=== PATIENT | male | born 1990 | race Caucasian/White ===

== ENCOUNTER 2016-10-17 03:59 | Inpatient (IN) | payer MEDICAID ==
[~2016-10-17] VITALS: Ht 170.2 cm; Wt 62.1 kg
[~2016-10-17 03:59] MED LIST: ARIP10TA14 PO; DIVA500T52 PO; ESCI10TA PO; LORA1TAB3 PO; OXYC-158 PO
[2016-10-17 04:25] LABS: BASOPHILS # (AUTO) 0.01 K/uL (0.00-0.20); BASOPHILS % (AUTO) 0.1 % (0.0-2.0); EOSINOPHILS # (AUTO) 0.01 K/uL (0.00-0.70); EOSINOPHILS % (AUTO) 0.06 % (1.0-6.0); HEMATOCRIT 45.4 % (41-53); HEMOGLOBIN 15.1 g/dL (13.5-17.5); LYMPHOCYTES # (AUTO) 1.1 K/uL (1.0-4.8); LYMPHOCYTES % (AUTO) 8.7 % (22.0-44.0); MEAN CORPUSCULAR HEMOGLOBIN 31.2 pg (26.0-34.0); MEAN CORPUSCULAR HGB CONC 33.3 G/dL (31.0-37.0); MEAN CORPUSCULAR VOLUME 94 fL (80-100); MONOCYTES # (AUTO) 0.9 K/uL (0.1-1.0); NEUTROPHILS # (AUTO) 10.5 K/uL (1.8-7.7); NEUTROPHILS % (AUTO) 84.2 % (40.0-70.0); PLATELET COUNT (AUTO) 217 K/uL (150-450); RED BLOOD CELL COUNT(AUTO) 4.84 MIL/uL (4.50-5.90); RED CELL DISTRIBUTION WIDTH 13.9 % (11.5-14.5); WHITE BLOOD COUNT (AUTO) 12.4 K/uL (4.5-11.0)
[2016-10-17 04:32] LABS: ANION GAP 9 mmol/L (8-16); CALCIUM, TOTAL 9.1 mg/dL (8.8-10.5); CARBON DIOXIDE 29 mmol/L (22-29); CHLORIDE 97 mmol/L (98-107); GLOMERULAR FILTR. RATE CALC > 60 mL/min (>60); POTASSIUM 4.3 mmol/L (3.5-5.1); SODIUM SERUM 135 mmol/L (136-145); UREA NITROGEN, BLOOD 19 mg/dL (7-18)
[2016-10-17 04:40] LABS: ALANINE AMINOTRANSFERASE 29 U/L (12-78); ALBUMIN 4.3 g/dL (3.4-5.0); ASPARTATE AMINOTRANSFERASE 42 U/L (15-37); BILIRUBIN,TOTAL 0.9 mg/dL (0.1-1.0); TOTAL PROTEIN, SERUM 7.5 g/dL (6.4-8.2)
[2016-10-17 04:51] LABS: VALPROIC ACID < 3 mcg/mL (50-100)
[2016-10-17] MEDS ORDERED: LORazepam 2 MG TABLET PO ONE (05:00)
[2016-10-17] MEDS ORDERED: HALOPERIDOL 5 MG TABLET PO PRN (05:00)
[2016-10-17] MEDS: ZOLPIDEM TARTRATE 10 MG TABLET PO PRN ×2 (06:06→20:09)
[2016-10-17 16:33] VITALS: BP 130/92
[2016-10-17 16:35] VITALS: BP 130/92
[2016-10-17] MEDS: LORazepam 2 MG TABLET PO PRN (20:09)
[2016-10-17] MEDS: DIVALPROEX SODIUM 500 MG DR TABLET PO SCH (20:09)
[2016-10-18] MEDS: LORazepam 2 MG TABLET PO PRN ×3 (00:22→20:19)
[2016-10-18 06:16] VITALS: BP 135/85
[2016-10-18 08:57] VITALS: BP 123/91
[2016-10-18] MEDS: ESCITALOPRAM OXALATE 20 MG TABLET PO SCH (09:02)
[2016-10-18] MEDS: ARIPiprazole 10 MG TABLET PO SCH (09:02)
[2016-10-18 14:59] VITALS: BP 125/87
[2016-10-18 16:32] VITALS: BP 130/82
[2016-10-18] MEDS: DIVALPROEX SODIUM 500 MG DR TABLET PO SCH (20:19)
[2016-10-19 00:25] VITALS: BP 114/72
[2016-10-19 08:51] VITALS: BP 141/82
[2016-10-19] MEDS: ESCITALOPRAM OXALATE 20 MG TABLET PO SCH (09:32)
[2016-10-19] MEDS: ARIPiprazole 10 MG TABLET PO SCH (09:32)
[2016-10-19] MEDS: LORazepam 2 MG TABLET PO PRN (09:48)
[2016-10-19] MEDS ORDERED: DIVA500T35 PO (11:10)
== END 2016-10-19 13:15 | disposition home or self-care (01) | DRG 885 ==
LOC: EMS 04:00 → B2S 13:42 → EMS 14:01
DX: F31.4 Bipolar disorder, current episode depressed, severe, without psychotic features (principal); R45.851 Suicidal ideations; F12.90 Cannabis use, unspecified, uncomplicated; F17.210 Nicotine dependence, cigarettes, uncomplicated; G89.29 Other chronic pain; M54.9 Dorsalgia, unspecified; F41.9 Anxiety disorder, unspecified; Z65.3 Problems related to other legal circumstances; Z91.5 Personal history of self-harm; Z79.899 Other long term (current) drug therapy
CPT/HCPCS: 87081; 99285; G0480

== ENCOUNTER 2017-01-18 15:30 | Inpatient (IN) | payer MEDICAID ==
[~2017-01-18] VITALS: Ht 172.7 cm; Wt 63.5 kg
[~2017-01-18 15:30] MED LIST changes: +DIVA500T35 PO; -DIVA500T52 PO; -LORA1TAB3 PO; -OXYC-158 PO
[2017-01-18 15:57] VITALS: BP 127/67
[2017-01-18] MEDS ORDERED: HALOPERIDOL 5 MG TABLET PO PRN (16:00)
[2017-01-18] MEDS ORDERED: LORazepam 2 MG TABLET PO PRN (16:00)
[2017-01-18] MEDS ORDERED: PARO20TA24 PO (16:28)
[2017-01-18] MEDS ORDERED: DIAZ5 PO (16:28)
[2017-01-18 17:59] VITALS: BP 125/71
[2017-01-19 00:15] VITALS: BP 108/65
[2017-01-19 08:56] LABS: BASOPHILS # (AUTO) 0.04 K/uL (0.00-0.20); BASOPHILS % (AUTO) 0.8 % (0.0-2.0); EOSINOPHILS # (AUTO) 0.05 K/uL (0.00-0.70); EOSINOPHILS % (AUTO) 1.15 % (1.0-6.0); HEMATOCRIT 41.1 % (41-53); HEMOGLOBIN 13.9 g/dL (13.5-17.5); LYMPHOCYTES # (AUTO) 1.5 K/uL (1.0-4.8); LYMPHOCYTES % (AUTO) 33.4 % (22.0-44.0); MEAN CORPUSCULAR HGB CONC 33.7 G/dL (31.0-37.0); MEAN CORPUSCULAR VOLUME 92 fL (80-100); MONOCYTES # (AUTO) 0.4 K/uL (0.1-1.0); MONOCYTES % (AUTO) 8.5 % (2.0-9.0); NEUTROPHILS # (AUTO) 2.5 K/uL (1.8-7.7); NEUTROPHILS % (AUTO) 56.1 % (40.0-70.0); PLATELET COUNT (AUTO) 180 K/uL (150-450); RED BLOOD CELL COUNT(AUTO) 4.49 MIL/uL (4.50-5.90); RED CELL DISTRIBUTION WIDTH 12.8 % (11.5-14.5); WHITE BLOOD COUNT (AUTO) 4.4 K/uL (4.5-11.0)
[2017-01-19 09:17] LABS: ALANINE AMINOTRANSFERASE 18 U/L (12-78); ALBUMIN 3.6 g/dL (3.4-5.0); ANION GAP 5 mmol/L (8-16); ASPARTATE AMINOTRANSFERASE 13 U/L (15-37); BILIRUBIN,TOTAL 0.5 mg/dL (0.1-1.0); CALCIUM, TOTAL 8.4 mg/dL (8.8-10.5); CARBON DIOXIDE 32 mmol/L (22-29); CHLORIDE 105 mmol/L (98-107); CREATININE 0.87 mg/dL (0.60-1.30); GLOMERULAR FILTR. RATE CALC > 60 mL/min (>60); POTASSIUM 3.7 mmol/L (3.5-5.1); SODIUM SERUM 142 mmol/L (136-145); TOTAL PROTEIN, SERUM 6.4 g/dL (6.4-8.2); UREA NITROGEN, BLOOD 20 mg/dL (7-18)
[2017-01-19 09:18] VITALS: BP 108/62
[2017-01-19 09:30] LABS: APPEARANCE,URINE TURBID (CLEAR); GLUCOSE, URINE (UA) NEGATIVE (NEGATIVE); KETONES,URINE NEGATIVE (NEGATIVE); LEUKOCYTE ESTERASE ,URINE NEGATIVE (NEGATIVE); OCCULT BLOOD,URINE NEGATIVE (NEGATIVE); PH,URINE 5.5 (5.0-8.0); PROTEIN,URINE NEGATIVE (NEGATIVE)
[2017-01-19 09:34] LABS: ADD UA MICROSCOPIC NO
[2017-01-19] MEDS ORDERED: HydrOXYzine PAMOATE 25 MG CAPSULE PO PRN (14:30)
[2017-01-19 16:00] VITALS: BP 121/77
[2017-01-19] MEDS: LORazepam 1 MG TABLET PO SCH (16:11)
[2017-01-19] MEDS: ZOLPIDEM TARTRATE 10 MG TABLET PO PRN (21:11)
[2017-01-20 06:00] VITALS: BP 110/66
[2017-01-20] MEDS: LORazepam 1 MG TABLET PO SCH (09:23)
[2017-01-20] MEDS: PARoxetine HCL 20 MG TABLET PO SCH (09:23)
[2017-01-20 13:34] VITALS: BP_SYST 100; BP_SYST 126; BP_DIAS 68; BP_DIAS 70
[2017-01-20 16:00] VITALS: BP 147/79
[2017-01-20] MEDS: ZOLPIDEM TARTRATE 10 MG TABLET PO PRN (20:25)
[2017-01-21 07:00] VITALS: BP 125/62
[2017-01-21] MEDS: PARoxetine HCL 20 MG TABLET PO SCH (08:04)
[2017-01-21 08:13] VITALS: BP 110/62
[2017-01-21] MEDS ORDERED: PARO40TA PO (10:32)
== END 2017-01-21 12:30 | disposition home or self-care (01) | DRG 751 ==
LOC: B2S 16:01 → EDSTATUS 16:03
PROVIDERS: ADMIT Psychiatry & Neurology Psychiatry; ATTEND Psychiatry & Neurology Psychiatry
DX: F33.2 Major depressive disorder, recurrent severe without psychotic features (principal); F41.9 Anxiety disorder, unspecified; F12.90 Cannabis use, unspecified, uncomplicated; F13.90 Sedative, hypnotic, or anxiolytic use, unspecified, uncomplicated
CPT/HCPCS: 87081

== ENCOUNTER 2017-01-31 17:16 | Inpatient (IN) | payer MEDICAID ==
[~2017-01-31] VITALS: Ht 172.7 cm; Wt 60.9 kg
[~2017-01-31 17:16] MED LIST changes: -ARIP10TA14 PO; -DIVA500T35 PO; -ESCI10TA PO; +PARO40TA PO
[2017-01-31] MEDS ORDERED: LORazepam 2 MG TABLET PO ONE (19:00)
[2017-01-31] MEDS ORDERED: HydrOXYzine PAMOATE 50 MG CAPSULE PO ONE (19:30)
[2017-01-31 19:50] LABS: BASOPHILS % (AUTO) 0.7 % (0.0-2.0); EOSINOPHILS % (AUTO) 0.7 % (1.0-6.0); HEMATOCRIT 47.2 % (41-53); HEMOGLOBIN 15.4 g/dL (13.5-17.5); LYMPHOCYTES % (AUTO) 39.7 % (22.0-44.0); MEAN CORPUSCULAR HEMOGLOBIN 30.4 pg (26.0-34.0); MEAN CORPUSCULAR HGB CONC 32.6 G/dL (31.0-37.0); MEAN CORPUSCULAR VOLUME 93 fL (80-100); MONOCYTES # (AUTO) 0.5 K/uL (0.1-1.0); MONOCYTES % (AUTO) 7.2 % (2.0-9.0); NEUTROPHILS # (AUTO) 3.9 K/uL (1.8-7.7); NEUTROPHILS % (AUTO) 51.7 % (40.0-70.0); PLATELET COUNT (AUTO) 215 K/uL (150-450); RED BLOOD CELL COUNT(AUTO) 5.06 MIL/uL (4.50-5.90); RED CELL DISTRIBUTION WIDTH 13.7 % (11.5-14.5); WHITE BLOOD COUNT (AUTO) 7.5 K/uL (4.5-11.0)
[2017-01-31 20:06] LABS: ANION GAP 1 mmol/L (8-16); CALCIUM, TOTAL 9.1 mg/dL (8.8-10.5); CARBON DIOXIDE 31 mmol/L (22-29); CHLORIDE 100 mmol/L (98-107); CREATININE 1.02 mg/dL (0.60-1.30); GLOMERULAR FILTR. RATE CALC > 60 mL/min (>60); POTASSIUM 3.9 mmol/L (3.5-5.1); SODIUM SERUM 132 mmol/L (136-145); UREA NITROGEN, BLOOD 17 mg/dL (7-18)
[2017-01-31 20:07] LABS: ALANINE AMINOTRANSFERASE 20 U/L (12-78); ALBUMIN 4.5 g/dL (3.4-5.0); ASPARTATE AMINOTRANSFERASE 11 U/L (15-37); BILIRUBIN,TOTAL 0.4 mg/dL (0.1-1.0); TOTAL PROTEIN, SERUM 7.4 g/dL (6.4-8.2)
[2017-01-31 21:14] VITALS: BP 119/80
[2017-01-31] MEDS: ZOLPIDEM TARTRATE 10 MG TABLET PO PRN (21:37)
[2017-02-01 06:37] VITALS: BP 109/69
[2017-02-01 08:38] VITALS: BP 98/55
[2017-02-01] MEDS: LORazepam 2 MG TABLET PO PRN ×2 (12:05→16:04)
[2017-02-01 16:04] VITALS: BP 112/66
[2017-02-01] MEDS: ZOLPIDEM TARTRATE 10 MG TABLET PO PRN (21:01)
[2017-02-02 06:36] VITALS: BP 106/63
[2017-02-02 08:02] VITALS: BP 122/63
[2017-02-02] MEDS: HydrOXYzine PAMOATE 25 MG CAPSULE PO SCH ×3 (08:08→17:13)
[2017-02-02] MEDS: PARoxetine HCL 20 MG TABLET PO SCH (08:08)
[2017-02-02] MEDS: HALOPERIDOL 5 MG TABLET PO PRN (08:21)
[2017-02-02 16:07] VITALS: BP 127/66
[2017-02-02] MEDS: ZOLPIDEM TARTRATE 10 MG TABLET PO PRN (21:25)
[2017-02-03 05:36] VITALS: BP 109/68
[2017-02-03 08:03] VITALS: BP 116/60
[2017-02-03] MEDS: HydrOXYzine PAMOATE 25 MG CAPSULE PO SCH ×3 (09:02→16:23)
[2017-02-03] MEDS: PARoxetine HCL 20 MG TABLET PO SCH (09:02)
[2017-02-03 16:00] VITALS: BP 119/72
[2017-02-03] MEDS: ZOLPIDEM TARTRATE 10 MG TABLET PO PRN (20:27)
[2017-02-04 06:01] VITALS: BP 108/73
[2017-02-04 08:28] VITALS: BP 118/67
[2017-02-04] MEDS: HydrOXYzine PAMOATE 25 MG CAPSULE PO SCH ×2 (08:41→11:37)
[2017-02-04] MEDS: HALOPERIDOL 5 MG TABLET PO PRN (08:42)
[2017-02-04] MEDS: PARoxetine HCL 20 MG TABLET PO SCH (08:42)
[2017-02-04] MEDS ORDERED: HYDR-4031 PO (11:22)
[2017-02-04] MEDS ORDERED: PARO20TA24 PO (11:22)
== END 2017-02-04 13:00 | disposition home or self-care (01) | DRG 751 ==
LOC: EMS 17:23 → B3A 20:00
PROVIDERS: ADMIT Psychiatry & Neurology Psychiatry; ATTEND Psychiatry & Neurology Psychiatry
DX: F33.2 Major depressive disorder, recurrent severe without psychotic features (principal); F41.9 Anxiety disorder, unspecified; F12.90 Cannabis use, unspecified, uncomplicated
CPT/HCPCS: 87081; 99285; G0480

== ENCOUNTER 2017-02-08 11:17 | Inpatient (IN) | payer MEDICAID ==
[~2017-02-08] VITALS: Ht 165.1 cm; Wt 60.0 kg
[~2017-02-08 11:17] MED LIST changes: +HYDR-4031 PO; +PARO20TA24 PO; -PARO40TA PO
[2017-02-08 13:53] VITALS: BP 153/78
[2017-02-08] MEDS ORDERED: ACETAMINOPHEN 325 MG TABLET PO PRN (14:30)
[2017-02-08] MEDS ORDERED: MAG HYDROX/AL HYDROX/SIMETH ES 30 ML SUSPENSION UDCUP PO PRN (14:30)
[2017-02-08] MEDS ORDERED: MAGNESIUM HYDROXIDE SUSPENSION 30 ML UDCUP PO PRN (14:30)
[2017-02-08] MEDS ORDERED: LOPERAMIDE HCL 2 MG CAPSULE PO PRN (14:30)
[2017-02-08] MEDS ORDERED: OLANZapine 5 MG RAPDIS TABLET PO PRN (14:30)
[2017-02-08] MEDS: LORazepam 2 MG TABLET PO PRN ×2 (15:57→20:26)
[2017-02-08 16:15] VITALS: BP 120/76
[2017-02-08] MEDS: PROMETHAZINE HCL 25 MG TABLET PO PRN (17:32)
[2017-02-08] MEDS: ZOLPIDEM TARTRATE 10 MG TABLET PO PRN (20:26)
[2017-02-09 08:32] VITALS: BP 116/72
[2017-02-09 08:35] LABS: BASOPHILS % (AUTO) 0.2 % (0.0-2.0); EOSINOPHILS % (AUTO) 2.1 % (1.0-6.0); HEMATOCRIT 48.8 % (41-53); HEMOGLOBIN 16.3 g/dL (13.5-17.5); LYMPHOCYTES # (AUTO) 2.4 K/uL (1.0-4.8); MEAN CORPUSCULAR HEMOGLOBIN 31.5 pg (26.0-34.0); MEAN CORPUSCULAR HGB CONC 33.4 G/dL (31.0-37.0); MEAN CORPUSCULAR VOLUME 94 fL (80-100); MONOCYTES # (AUTO) 0.7 K/uL (0.1-1.0); MONOCYTES % (AUTO) 9.9 % (2.0-9.0); NEUTROPHILS # (AUTO) 3.4 K/uL (1.8-7.7); NEUTROPHILS % (AUTO) 50.8 % (40.0-70.0); PLATELET COUNT (AUTO) 210 K/uL (150-450); RED BLOOD CELL COUNT(AUTO) 5.17 MIL/uL (4.50-5.90); RED CELL DISTRIBUTION WIDTH 13.6 % (11.5-14.5); WHITE BLOOD COUNT (AUTO) 6.6 K/uL (4.5-11.0)
[2017-02-09] MEDS: PARoxetine HCL 20 MG TABLET PO SCH (08:56)
[2017-02-09] MEDS: LORazepam 2 MG TABLET PO PRN ×3 (08:56→18:01)
[2017-02-09] MEDS ORDERED: OLANZapine 7.5 MG TABLET PO SCH (09:00)
[2017-02-09 09:46] LABS: ALANINE AMINOTRANSFERASE 18 U/L (12-78); ALBUMIN 4.4 g/dL (3.4-5.0); ANION GAP 8 mmol/L (8-16); ASPARTATE AMINOTRANSFERASE 11 U/L (15-37); BILIRUBIN,TOTAL 0.5 mg/dL (0.1-1.0); CALCIUM, TOTAL 9.2 mg/dL (8.8-10.5); CARBON DIOXIDE 30 mmol/L (22-29); CHLORIDE 101 mmol/L (98-107); CHOL/HDL RATIO 3.1 (4.2-7.3); CREATININE 0.87 mg/dL (0.60-1.30); GLOMERULAR FILTR. RATE CALC > 60 mL/min (>60); POTASSIUM 3.3 mmol/L (3.5-5.1); SODIUM SERUM 139 mmol/L (136-145); THYROID STIMULATING HORMONE 2.04 uIU/mL (0.36-3.74); TOTAL PROTEIN, SERUM 7.6 g/dL (6.4-8.2); UREA NITROGEN, BLOOD 16 mg/dL (7-18)
[2017-02-09] MEDS ORDERED: POTASSIUM CHLORIDE 20 MEQ ER TABLET PO ONE (11:00)
[2017-02-09] MEDS: PROMETHAZINE HCL 25 MG TABLET PO PRN ×2 (14:28→21:16)
[2017-02-09 16:05] VITALS: BP 110/65
[2017-02-09] MEDS: ZOLPIDEM TARTRATE 10 MG TABLET PO PRN (20:32)
[2017-02-09] MEDS: OLANZapine 7.5 MG TABLET PO SCH (20:46)
[2017-02-10] MEDS: LORazepam 2 MG TABLET PO PRN ×4 (00:45→20:18)
[2017-02-10 00:46] VITALS: BP 123/92
[2017-02-10 08:10] LABS: ANION GAP 5 mmol/L (8-16); CALCIUM, TOTAL 8.9 mg/dL (8.8-10.5); CARBON DIOXIDE 32 mmol/L (22-29); CHLORIDE 103 mmol/L (98-107); GLOMERULAR FILTR. RATE CALC > 60 mL/min (>60); POTASSIUM 4.1 mmol/L (3.5-5.1); SODIUM SERUM 140 mmol/L (136-145); UREA NITROGEN, BLOOD 15 mg/dL (7-18)
[2017-02-10] MEDS: PARoxetine HCL 20 MG TABLET PO SCH (08:20)
[2017-02-10 09:18] VITALS: BP 110/64
[2017-02-10 16:16] VITALS: BP 120/67
[2017-02-10] MEDS: OLANZapine 7.5 MG TABLET PO SCH (20:18)
[2017-02-10] MEDS: PROMETHAZINE HCL 25 MG TABLET PO PRN (20:22)
[2017-02-10] MEDS: ZOLPIDEM TARTRATE 10 MG TABLET PO PRN (22:25)
[2017-02-11 08:48] VITALS: BP 121/72
[2017-02-11] MEDS: PARoxetine HCL 20 MG TABLET PO SCH (10:06)
[2017-02-11] MEDS: LORazepam 2 MG TABLET PO PRN (10:13)
[2017-02-11] MEDS ORDERED: OLAN7.5T2 PO (11:12)
[2017-02-11] MEDS ORDERED: NALT50 PO (12:19)
[2017-02-11] MEDS ORDERED: HydrOXYzine PAMOATE 50 MG CAPSULE PO PRN (12:30)
[2017-02-11] MEDS ORDERED: LOPERAMIDE HCL 2 MG CAPSULE PO PRN (12:30)
[2017-02-11] MEDS ORDERED: MAG HYDROX/AL HYDROX/SIMETH ES 30 ML SUSPENSION UDCUP PO PRN (12:30)
[2017-02-11] MEDS ORDERED: GuaiFENesin/D-METHORPHAN [SUGAR-FREE] 200-20MG/10 ML SYRUP UDCUP PO PRN (12:30)
[2017-02-11] MEDS ORDERED: ZOLPIDEM TARTRATE 10 MG TABLET PO PRN (12:30)
[2017-02-11] MEDS ORDERED: PROMETHAZINE HCL 25 MG TABLET PO PRN (12:30)
[2017-02-11] MEDS ORDERED: ACETAMINOPHEN 325 MG TABLET PO PRN (12:30)
[2017-02-11] MEDS ORDERED: MAGNESIUM HYDROXIDE SUSPENSION 30 ML UDCUP PO PRN (12:30)
[2017-02-11] MEDS ORDERED: THIAMINE HCL 100 MG TABLET PO SCH (17:00)
[2017-02-12] MEDS ORDERED: MULTIVITAMINS WITH MINERALS, THERAPEUTIC TABLET PO SCH (09:00)
[2017-02-12] MEDS ORDERED: NALTREXONE HCL 50 MG TABLET PO SCH (09:00)
[2017-02-12] MEDS ORDERED: FOLIC ACID 1 MG TABLET PO SCH (09:00)
== END 2017-02-11 12:05 | disposition home or self-care (01) | DRG 750 ==
LOC: B3A 14:29 → EDSTATUS 14:36 → B2S 02-09 16:33
PROVIDERS: ADMIT Psychiatry & Neurology Psychiatry
DX: F25.1 Schizoaffective disorder, depressive type (principal); R45.851 Suicidal ideations; Z91.19 Patient's noncompliance with other medical treatment and regimen; F12.90 Cannabis use, unspecified, uncomplicated
CPT/HCPCS: 84439; 84443; 87081

== ENCOUNTER 2021-03-01 01:26 | Inpatient (IN) | payer MEDICAID ==
[~2021-03-01] VITALS: Ht 170.2 cm; Wt 60.8 kg
[~2021-03-01 01:26] MED LIST changes: -HYDR-4031 PO; +NALT50TA6 PO; +OLAN7.5T22 PO; +PARO-38 PO; -PARO20TA24 PO
[2021-03-01 02:16] LABS: EOSINOPHILS % (AUTO) 0.4 % (1.0-6.0); HEMATOCRIT 50.3 % (41-53); HEMOGLOBIN 16.8 g/dL (13.5-17.5); LYMPHOCYTES # (AUTO) 1.8 K/uL (1.0-4.8); LYMPHOCYTES % (AUTO) 23.7 % (22.0-44.0); MEAN CORPUSCULAR HEMOGLOBIN 32.3 pg (26.0-34.0); MEAN CORPUSCULAR HGB CONC 33.3 G/dL (31.0-37.0); MEAN CORPUSCULAR VOLUME 97 fL (80-100); MONOCYTES # (AUTO) 0.5 K/uL (0.1-1.0); MONOCYTES % (AUTO) 6.1 % (2.0-9.0); NEUTROPHILS # (AUTO) 5.4 K/uL (1.8-7.7); NEUTROPHILS % (AUTO) 68.8 % (40.0-70.0); PLATELET COUNT (AUTO) 255 K/uL (150-450); RED BLOOD CELL COUNT(AUTO) 5.18 MIL/uL (4.50-5.90); RED CELL DISTRIBUTION WIDTH 13.4 % (11.5-14.5)
[2021-03-01 02:23] LABS: ANION GAP 10 mmol/L (8-16); CALCIUM, TOTAL 8.4 mg/dL (8.8-10.5); CARBON DIOXIDE 27 mmol/L (22-29); CHLORIDE 106 mmol/L (98-107); CREATININE 0.78 mg/dL (0.60-1.30); GLOMERULAR FILTR. RATE CALC > 60 mL/min (>60); GLUCOSE,RANDOM 96 mg/dL (70-110); POTASSIUM 3.2 mmol/L (3.5-5.1); SODIUM SERUM 143 mmol/L (136-145); UREA NITROGEN, BLOOD 11 mg/dL (7-18)
[2021-03-01 02:29] LABS: ALANINE AMINOTRANSFERASE 21 U/L (12-78); ALBUMIN 4.1 g/dL (3.4-5.0); ALKALINE PHOSPHATASE 80 U/L (46-116); ASPARTATE AMINOTRANSFERASE 18 U/L (15-37); BILIRUBIN,TOTAL 0.2 mg/dL (0.1-1.0); TOTAL PROTEIN, SERUM 7.3 g/dL (6.4-8.2)
[2021-03-01] MEDS ORDERED: LORazepam 2 MG TABLET PO PRN (02:30)
[2021-03-01 02:38] LABS: COVID AG,FIA SOURCE NASOPHARYNGEAL
[2021-03-01 03:16] LABS: SALICYLATE 2.8 mg/dL (2.8-20.0)
[2021-03-01 03:21] LABS: ACETAMINOPHEN < 2 mcg/mL (10-30)
[2021-03-01] MEDS ORDERED: POTASSIUM CHLORIDE 20 MEQ ER TABLET PO ONE (04:00)
[2021-03-01] MEDS ORDERED: ALBUTEROL SULFATE HFA 90 MCG/PUFF 8 GM INHALER IH PRN (07:45)
[2021-03-01] MEDS ORDERED: MAGNESIUM HYDROXIDE SUSPENSION 30 ML UDCUP PO PRN (07:45)
[2021-03-01] MEDS ORDERED: IBUPROFEN 400 MG TABLET PO PRN (07:45)
[2021-03-01] MEDS ORDERED: LOPERAMIDE HCL 2 MG CAPSULE PO PRN (07:45)
[2021-03-01] MEDS ORDERED: MAG HYDROX/AL HYDROX/SIMETH ES 30 ML SUSPENSION UDCUP PO PRN (07:45)
[2021-03-01] MEDS ORDERED: DOCUSATE SODIUM 100 MG CAPSULE PO PRN (07:45)
[2021-03-01] MEDS ORDERED: ONDANSETRON HCL 4 MG TABLET PO PRN (07:45)
[2021-03-01] MEDS ORDERED: CloNIDine HCL 0.1 MG TABLET PO PRN (07:45)
[2021-03-01] MEDS ORDERED: NICOTINE 14 MG/24 HOUR PATCH TD PRN (07:45)
[2021-03-01] MEDS ORDERED: GuaiFENesin/D-METHORPHAN [SUGAR-FREE] 200-20MG/10 ML SYRUP UDCUP PO PRN (07:45)
[2021-03-01] MEDS ORDERED: PETROLATUM,WHITE 28 GM JELLY TP PRN (07:45)
[2021-03-01] MEDS ORDERED: ACETAMINOPHEN 325 MG TABLET PO PRN (07:45)
[2021-03-01 08:35] VITALS: BP 124/87
[2021-03-01] MEDS: LORazepam 2 MG TABLET PO PRN ×3 (08:53→20:59)
[2021-03-01 09:35] LABS: APPEARANCE,URINE CLEAR (CLEAR); BILIRUBIN,URINE NEGATIVE (NEGATIVE); GLUCOSE, URINE (UA) NEGATIVE (NEGATIVE); KETONES,URINE TRACE mg/dL (NEGATIVE); LEUKOCYTE ESTERASE ,URINE NEGATIVE (NEGATIVE); NITRATE,URINE NEGATIVE (NEGATIVE); OCCULT BLOOD,URINE NEGATIVE (NEGATIVE); PH,URINE 5.5 (5.0-8.0); PROTEIN,URINE NEGATIVE (NEGATIVE); UROBILINOGEN,URINE 0.2 mg/dL (<=1.0)
[2021-03-01 09:50] LABS: AMPHET/METH SCREEN,URINE POSITIVE (NEGATIVE); BARBITURATE SCREEN, URINE NEGATIVE (NEGATIVE); BENZODIAZEPINES SCREEN,URINE NEGATIVE (NEGATIVE); CANNABINOID SCREEN,URINE POSITIVE (NEGATIVE); COCAINE SCREEN,URINE NEGATIVE (NEGATIVE); METHADONE SCREEN, URINE NEGATIVE (NEGATIVE); OPIATE SCREEN,URINE POSITIVE (NEGATIVE); PHENCYCLIDINE SCREEN,URINE NEGATIVE (NEGATIVE)
[2021-03-01 09:55] VITALS: BP 120/72
[2021-03-01] MEDS ORDERED: CYANOCOBALAMIN 1,000 MCG/ML VIAL IM ONE (10:00)
[2021-03-01] MEDS: MULTIVITAMINS WITH MINERALS, THERAPEUTIC TABLET PO SCH (10:05)
[2021-03-01] MEDS: PARoxetine HCL 20 MG TABLET PO SCH (10:06)
[2021-03-01] MEDS: FOLIC ACID 1 MG TABLET PO SCH (10:06)
[2021-03-01] MEDS: THIAMINE 100 MG TABLET PO SCH ×2 (10:06→16:23)
[2021-03-01 10:55] VITALS: BP 125/78
[2021-03-01 11:55] VITALS: BP 123/76
[2021-03-01 16:00] VITALS: BP 118/76
[2021-03-01 17:51] VITALS: BP 121/76
[2021-03-01] MEDS ORDERED: HALOPERIDOL LACTATE 5 MG/ML VIAL IM ONE (19:15)
[2021-03-01] MEDS ORDERED: DiphenhydrAMINE HCL 50 MG/ML VIAL IM ONE (19:15)
[2021-03-01] MEDS ORDERED: LORazepam 2 MG/ML VIAL IM ONE (19:15)
[2021-03-01] MEDS ORDERED: OLANZapine 7.5 MG TABLET PO SCH (21:00)
[2021-03-02 08:39] LABS: CHOL/HDL RATIO 3.4 (4.2-7.3)
[2021-03-02 08:53] VITALS: BP 124/83
[2021-03-02 09:51] VITALS: BP 120/78
[2021-03-02] MEDS: FOLIC ACID 1 MG TABLET PO SCH (10:02)
[2021-03-02] MEDS: THIAMINE 100 MG TABLET PO SCH ×2 (10:02→16:46)
[2021-03-02] MEDS: MULTIVITAMINS WITH MINERALS, THERAPEUTIC TABLET PO SCH (10:02)
[2021-03-02] MEDS: PARoxetine HCL 20 MG TABLET PO SCH (10:02)
[2021-03-02] MEDS: LORazepam 2 MG TABLET PO SCH ×4 (10:03→21:00)
[2021-03-02] MEDS: QUEtiapine FUMARATE 100 MG TABLET PO PRN (12:50)
[2021-03-02] MEDS: LORazepam 2 MG TABLET PO PRN (12:51)
[2021-03-02 18:49] VITALS: BP 116/70
[2021-03-02 20:50] VITALS: BP 108/74
[2021-03-02] MEDS: OLANZapine 10 MG TABLET PO SCH (21:00)
[2021-03-03 08:15] VITALS: BP 123/61
[2021-03-03] MEDS: PARoxetine HCL 20 MG TABLET PO SCH (08:40)
[2021-03-03] MEDS: MULTIVITAMINS WITH MINERALS, THERAPEUTIC TABLET PO SCH (08:40)
[2021-03-03] MEDS: THIAMINE 100 MG TABLET PO SCH ×2 (08:40→16:06)
[2021-03-03] MEDS: LORazepam 2 MG TABLET PO SCH ×5 (08:40→20:30)
[2021-03-03] MEDS: FOLIC ACID 1 MG TABLET PO SCH (08:40)
[2021-03-03 10:20] VITALS: BP 110/67
[2021-03-03] MEDS: QUEtiapine FUMARATE 100 MG TABLET PO PRN ×2 (12:25→12:29)
[2021-03-03] MEDS: LORazepam 2 MG TABLET PO PRN (12:25)
[2021-03-03 16:01] VITALS: BP 118/74
[2021-03-03] MEDS: OLANZapine 10 MG TABLET PO SCH (20:32)
[2021-03-04] MEDS ORDERED: LORazepam 1 MG TABLET PO PRN (07:00)
[2021-03-04 08:27] VITALS: BP 111/79
[2021-03-04] MEDS: PARoxetine HCL 20 MG TABLET PO SCH (09:37)
[2021-03-04] MEDS: FOLIC ACID 1 MG TABLET PO SCH (09:37)
[2021-03-04] MEDS: LORazepam 1 MG TABLET PO SCH ×4 (09:37→20:21)
[2021-03-04] MEDS: THIAMINE 100 MG TABLET PO SCH ×2 (09:37→17:59)
[2021-03-04] MEDS: MULTIVITAMINS WITH MINERALS, THERAPEUTIC TABLET PO SCH (09:38)
[2021-03-04 12:05] VITALS: BP 118/77
[2021-03-04 16:00] VITALS: BP 116/68
[2021-03-04] MEDS: OLANZapine 10 MG TABLET PO SCH (20:21)
[2021-03-05 08:25] VITALS: BP 119/73
[2021-03-05] MEDS: FOLIC ACID 1 MG TABLET PO SCH (08:31)
[2021-03-05] MEDS: PARoxetine HCL 20 MG TABLET PO SCH (08:31)
[2021-03-05] MEDS: MULTIVITAMINS WITH MINERALS, THERAPEUTIC TABLET PO SCH (08:31)
[2021-03-05] MEDS: LORazepam 1 MG TABLET PO PRN ×3 (08:31→19:08)
[2021-03-05] MEDS: THIAMINE 100 MG TABLET PO SCH ×2 (08:31→17:20)
[2021-03-05 10:02] VITALS: BP 119/73
[2021-03-05 17:33] VITALS: BP 124/68
[2021-03-05] MEDS: OLANZapine 10 MG TABLET PO SCH (20:23)
[2021-03-06] MEDS: QUEtiapine FUMARATE 100 MG TABLET PO PRN (08:07)
[2021-03-06] MEDS: MULTIVITAMINS WITH MINERALS, THERAPEUTIC TABLET PO SCH (08:07)
[2021-03-06] MEDS: THIAMINE 100 MG TABLET PO SCH ×2 (08:07→16:06)
[2021-03-06] MEDS: FOLIC ACID 1 MG TABLET PO SCH (08:07)
[2021-03-06] MEDS: PARoxetine HCL 20 MG TABLET PO SCH (08:07)
[2021-03-06 08:15] VITALS: BP 119/86
[2021-03-06 12:30] VITALS: BP 113/71
[2021-03-06] MEDS: HydrOXYzine PAMOATE 50 MG CAPSULE PO PRN (12:30)
[2021-03-06] MEDS: BusPIRone HCL 5 MG TABLET PO SCH ×3 (12:30→20:03)
[2021-03-06 16:10] VITALS: BP 116/66
[2021-03-06] MEDS: OLANZapine 10 MG TABLET PO SCH (20:03)
[2021-03-06] MEDS: ZOLPIDEM TARTRATE 10 MG TABLET PO PRN (20:48)
[2021-03-07 08:43] VITALS: BP 116/65
[2021-03-07 09:51] VITALS: BP 116/65
[2021-03-07] MEDS: PARoxetine HCL 20 MG TABLET PO SCH (10:15)
[2021-03-07] MEDS: FOLIC ACID 1 MG TABLET PO SCH (10:15)
[2021-03-07] MEDS: MULTIVITAMINS WITH MINERALS, THERAPEUTIC TABLET PO SCH (10:15)
[2021-03-07] MEDS: THIAMINE 100 MG TABLET PO SCH ×2 (10:15→16:05)
[2021-03-07] MEDS: BusPIRone HCL 5 MG TABLET PO SCH ×3 (10:16→20:13)
[2021-03-07 18:06] VITALS: BP 115/61
[2021-03-07] MEDS: OLANZapine 10 MG TABLET PO SCH (20:14)
[2021-03-07] MEDS: ZOLPIDEM TARTRATE 10 MG TABLET PO PRN (20:15)
[2021-03-07] MEDS: HydrOXYzine PAMOATE 50 MG CAPSULE PO PRN (21:12)
[2021-03-08 08:10] VITALS: BP 129/80
[2021-03-08] MEDS: BusPIRone HCL 5 MG TABLET PO SCH ×2 (08:46→16:54)
[2021-03-08] MEDS: PARoxetine HCL 20 MG TABLET PO SCH (08:46)
[2021-03-08] MEDS: THIAMINE 100 MG TABLET PO SCH ×2 (08:46→16:54)
[2021-03-08] MEDS: FOLIC ACID 1 MG TABLET PO SCH (08:46)
[2021-03-08] MEDS: MULTIVITAMINS WITH MINERALS, THERAPEUTIC TABLET PO SCH (08:47)
[2021-03-08] MEDS ORDERED: OLAN10 PO (09:22)
[2021-03-08] MEDS ORDERED: PARO-37 PO (09:22)
[2021-03-08 09:56] VITALS: BP 129/80
[2021-03-08 16:00] VITALS: BP 117/69
[2021-03-08] MEDS: HydrOXYzine PAMOATE 50 MG CAPSULE PO PRN (16:52)
== END 2021-03-08 19:04 | disposition home or self-care (01) | DRG 753 ==
LOC: EMS 01:27 → 3EC 03:00
DX: F31.4 Bipolar disorder, current episode depressed, severe, without psychotic features (principal); R56.9 Unspecified convulsions; R45.851 Suicidal ideations; E87.6 Hypokalemia; F10.20 Alcohol dependence, uncomplicated; F11.10 Opioid abuse, uncomplicated; F12.10 Cannabis abuse, uncomplicated; F15.10 Other stimulant abuse, uncomplicated; M54.9 Dorsalgia, unspecified; G89.29 Other chronic pain; F41.9 Anxiety disorder, unspecified; F99 Mental disorder, not otherwise specified; Z20.822 Contact with and (suspected) exposure to COVID-19; Z59.0 Homelessness; Z91.5 Personal history of self-harm; Z79.899 Other long term (current) drug therapy
CPT/HCPCS: 80053; 80061; 80307; 81003; 85025; 99285; G0480; G0481; J3420

== ENCOUNTER 2022-04-10 21:40 | Inpatient (IN) | payer MEDICAID, OTHER ==
[~2022-04-10] VITALS: Ht 170.2 cm; Wt 69.0 kg
[~2022-04-10 21:40] MED LIST changes: -NALT50TA6 PO; +OLAN10 PO; -OLAN7.5T22 PO; +PARO-37 PO; -PARO-38 PO
[2022-04-10 23:29] LABS: BASOPHILS % (AUTO) 1.2 % (0.0-2.0); EOSINOPHILS % (AUTO) 1.4 % (1.0-6.0); HEMATOCRIT 41.2 % (41-53); LYMPHOCYTES # (AUTO) 2.4 K/uL (1.0-4.8); LYMPHOCYTES % (AUTO) 41.9 % (22.0-44.0); MEAN CORPUSCULAR HEMOGLOBIN 31.4 pg (26.0-34.0); MEAN CORPUSCULAR VOLUME 92 fL (80-100); MONOCYTES # (AUTO) 0.4 K/uL (0.1-1.0); MONOCYTES % (AUTO) 6.5 % (2.0-9.0); NEUTROPHILS # (AUTO) 2.8 K/uL (1.8-7.7); PLATELET COUNT (AUTO) 253 K/uL (150-450); RED BLOOD CELL COUNT(AUTO) 4.46 MIL/uL (4.50-5.90); RED CELL DISTRIBUTION WIDTH 13.5 % (11.5-14.5)
[2022-04-10 23:37] LABS: ANION GAP 7 mmol/L (8-16); CALCIUM, TOTAL 8.6 mg/dL (8.8-10.5); CARBON DIOXIDE 30 mmol/L (22-29); CHLORIDE 102 mmol/L (98-107); CREATININE 0.83 mg/dL (0.60-1.30); GLUCOSE,RANDOM 94 mg/dL (70-110); POTASSIUM 4.3 mmol/L (3.5-5.1); SODIUM SERUM 139 mmol/L (136-145); UREA NITROGEN, BLOOD 25 mg/dL (7-18)
[2022-04-10 23:39] LABS: GLOMERULAR FILTR. RATE CALC > 60 mL/min (>60)
[2022-04-10 23:43] LABS: ALANINE AMINOTRANSFERASE 27 U/L (12-78); ALKALINE PHOSPHATASE 76 U/L (46-116); ASPARTATE AMINOTRANSFERASE 16 U/L (15-37); BILIRUBIN,TOTAL 0.1 mg/dL (0.1-1.0); TOTAL PROTEIN, SERUM 7.2 g/dL (6.4-8.2)
[2022-04-11 01:01] LABS: AMPHET/METH SCREEN,URINE NEGATIVE (NEGATIVE); BARBITURATE SCREEN, URINE NEGATIVE (NEGATIVE); BENZODIAZEPINES SCREEN,URINE POSITIVE (NEGATIVE); CANNABINOID SCREEN,URINE NEGATIVE (NEGATIVE); COCAINE SCREEN,URINE NEGATIVE (NEGATIVE); METHADONE SCREEN, URINE NEGATIVE (NEGATIVE); OPIATE SCREEN,URINE NEGATIVE (NEGATIVE)
[2022-04-11 01:04] LABS: PHENCYCLIDINE SCREEN,URINE NEGATIVE (NEGATIVE)
[2022-04-11 02:11] LABS: COVID AG,FIA SOURCE NASAL SWAB
[2022-04-11] MEDS ORDERED: LORazepam 1 MG TABLET PO ONE (02:15)
[2022-04-11 03:01] LABS: APPEARANCE,URINE CLEAR (CLEAR); BILIRUBIN,URINE NEGATIVE (NEGATIVE); GLUCOSE, URINE (UA) NEGATIVE (NEGATIVE); KETONES,URINE NEGATIVE (NEGATIVE); LEUKOCYTE ESTERASE ,URINE NEGATIVE (NEGATIVE); NITRATE,URINE NEGATIVE (NEGATIVE); OCCULT BLOOD,URINE NEGATIVE (NEGATIVE); PROTEIN,URINE NEGATIVE (NEGATIVE); SPECIFIC GRAVITIY, URINE 1.021 (1.003-1.030); UROBILINOGEN,URINE <=1.0 mg/dL (<=1.0)
[2022-04-11 04:20] VITALS: BP 124/81
[2022-04-11 04:51] VITALS: BP 124/81
[2022-04-11] MEDS ORDERED: CloNIDine HCL 0.1 MG TABLET PO PRN (06:45)
[2022-04-11] MEDS ORDERED: DOCUSATE SODIUM 100 MG CAPSULE PO PRN (06:45)
[2022-04-11] MEDS ORDERED: ACETAMINOPHEN 325 MG TABLET PO PRN (06:45)
[2022-04-11] MEDS ORDERED: IBUPROFEN 400 MG TABLET PO PRN (06:45)
[2022-04-11] MEDS ORDERED: MAG HYDROX/AL HYDROX/SIMETH ES 30 ML SUSPENSION UDCUP PO PRN (06:45)
[2022-04-11] MEDS ORDERED: MAGNESIUM HYDROXIDE SUSPENSION 30 ML UDCUP PO PRN (06:45)
[2022-04-11] MEDS ORDERED: PETROLATUM,WHITE 28 GM JELLY TP PRN (06:45)
[2022-04-11] MEDS ORDERED: LOPERAMIDE HCL 2 MG CAPSULE PO PRN (06:45)
[2022-04-11] MEDS ORDERED: ALBUTEROL SULFATE HFA 90 MCG/PUFF 8 GM INHALER IH PRN (06:45)
[2022-04-11] MEDS ORDERED: NICOTINE 14 MG/24 HOUR PATCH TD PRN (06:45)
[2022-04-11] MEDS ORDERED: GuaiFENesin/D-METHORPHAN [SUGAR-FREE] 200-20MG/10 ML SYRUP UDCUP PO PRN (06:45)
[2022-04-11] MEDS ORDERED: ONDANSETRON HCL 4 MG TABLET PO PRN (06:45)
[2022-04-11 08:00] VITALS: BP 95/52
[2022-04-11] MEDS: LORazepam 2 MG TABLET PO PRN ×3 (09:20→20:48)
[2022-04-11] MEDS: BACITRACIN 28 GM OINTMENT TP SCH ×2 (09:21→16:13)
[2022-04-11] MEDS: CEPHALEXIN MONOHYDRATE 500 MG CAPSULE PO SCH ×3 (09:38→16:13)
[2022-04-11] MEDS: FLUoxetine HCL 20 MG CAPSULE PO SCH (11:00)
[2022-04-11] MEDS: OLANZapine 10 MG TABLET PO SCH (20:48)
[2022-04-12 08:00] VITALS: BP 144/96
[2022-04-12] MEDS: HALOPERIDOL 5 MG TABLET PO PRN ×2 (08:26→12:26)
[2022-04-12] MEDS: LORazepam 2 MG TABLET PO PRN ×3 (08:26→16:56)
[2022-04-12] MEDS: FLUoxetine HCL 20 MG CAPSULE PO SCH (08:26)
[2022-04-12] MEDS: CEPHALEXIN MONOHYDRATE 500 MG CAPSULE PO SCH ×3 (08:26→16:03)
[2022-04-12 08:44] VITALS: BP 144/69
[2022-04-12] MEDS: BACITRACIN 28 GM OINTMENT TP SCH ×2 (10:37→16:02)
[2022-04-12 16:30] VITALS: BP 115/72
[2022-04-12] MEDS: OLANZapine 10 MG TABLET PO SCH (20:47)
[2022-04-12] MEDS: ZOLPIDEM TARTRATE 10 MG TABLET PO PRN (20:50)
[2022-04-13 08:00] VITALS: BP 106/65
[2022-04-13] MEDS: CEPHALEXIN MONOHYDRATE 500 MG CAPSULE PO SCH ×3 (09:48→16:28)
[2022-04-13] MEDS: FLUoxetine HCL 20 MG CAPSULE PO SCH (09:48)
[2022-04-13] MEDS: LORazepam 2 MG TABLET PO PRN ×3 (09:49→21:19)
[2022-04-13] MEDS: BACITRACIN 28 GM OINTMENT TP SCH ×2 (09:57→16:32)
[2022-04-13 16:00] VITALS: BP 105/55
[2022-04-13] MEDS: OLANZapine 10 MG TABLET PO SCH (20:15)
[2022-04-13] MEDS: ZOLPIDEM TARTRATE 10 MG TABLET PO PRN (20:15)
[2022-04-14] MEDS: LORazepam 2 MG TABLET PO PRN ×3 (07:24→20:31)
[2022-04-14 07:25] VITALS: BP 132/80
[2022-04-14 08:00] VITALS: BP 117/61
[2022-04-14] MEDS: CEPHALEXIN MONOHYDRATE 500 MG CAPSULE PO SCH ×3 (08:48→16:52)
[2022-04-14] MEDS: BACITRACIN 28 GM OINTMENT TP SCH ×2 (08:48→16:52)
[2022-04-14] MEDS: FLUoxetine HCL 20 MG CAPSULE PO SCH (08:48)
[2022-04-14 16:37] VITALS: BP 115/71
[2022-04-14] MEDS: OLANZapine 10 MG TABLET PO SCH (20:28)
[2022-04-14] MEDS: ZOLPIDEM TARTRATE 10 MG TABLET PO PRN (22:01)
[2022-04-15 08:00] VITALS: BP 145/89
[2022-04-15] MEDS: CEPHALEXIN MONOHYDRATE 500 MG CAPSULE PO SCH ×3 (08:41→16:23)
[2022-04-15] MEDS: LORazepam 2 MG TABLET PO PRN ×4 (08:41→22:33)
[2022-04-15] MEDS: FLUoxetine HCL 20 MG CAPSULE PO SCH (08:41)
[2022-04-15] MEDS: BACITRACIN 28 GM OINTMENT TP SCH ×2 (08:45→16:23)
[2022-04-15 16:42] VITALS: BP 109/65
[2022-04-15 20:11] VITALS: BP 119/79
[2022-04-15] MEDS: OLANZapine 10 MG TABLET PO SCH (20:56)
[2022-04-16] MEDS: ZOLPIDEM TARTRATE 10 MG TABLET PO PRN ×2 (00:01→21:49)
[2022-04-16] MEDS: FLUoxetine HCL 20 MG CAPSULE PO SCH (08:24)
[2022-04-16] MEDS: BACITRACIN 28 GM OINTMENT TP SCH ×2 (08:24→16:47)
[2022-04-16] MEDS: CEPHALEXIN MONOHYDRATE 500 MG CAPSULE PO SCH ×3 (08:24→16:46)
[2022-04-16] MEDS: LORazepam 2 MG TABLET PO PRN ×3 (08:25→20:20)
[2022-04-16 08:49] VITALS: BP 118/58
[2022-04-16 16:19] VITALS: BP 135/77
[2022-04-16 19:45] VITALS: BP 121/77
[2022-04-16] MEDS: OLANZapine 10 MG TABLET PO SCH (20:20)
[2022-04-17 07:49] LABS: COVID AG,FIA SOURCE NASAL SWAB
[2022-04-17 08:00] VITALS: BP 135/88
[2022-04-17] MEDS: CEPHALEXIN MONOHYDRATE 500 MG CAPSULE PO SCH ×3 (09:09→16:29)
[2022-04-17] MEDS: FLUoxetine HCL 20 MG CAPSULE PO SCH (09:09)
[2022-04-17] MEDS: BACITRACIN 28 GM OINTMENT TP SCH ×2 (09:09→16:29)
[2022-04-17] MEDS: LORazepam 2 MG TABLET PO PRN ×3 (11:09→21:42)
[2022-04-17 16:05] VITALS: BP 111/61
[2022-04-17] MEDS: OLANZapine 10 MG TABLET PO SCH (20:13)
[2022-04-17] MEDS: ZOLPIDEM TARTRATE 10 MG TABLET PO PRN (20:13)
[2022-04-18 08:00] VITALS: BP 101/72
[2022-04-18] MEDS: FLUoxetine HCL 20 MG CAPSULE PO SCH (08:17)
[2022-04-18] MEDS: LORazepam 2 MG TABLET PO PRN ×3 (08:18→16:56)
[2022-04-18 16:00] VITALS: BP 134/73
[2022-04-18] MEDS: HALOPERIDOL 5 MG TABLET PO PRN (16:56)
[2022-04-18] MEDS: OLANZapine 10 MG TABLET PO SCH (20:48)
[2022-04-18] MEDS: ZOLPIDEM TARTRATE 10 MG TABLET PO PRN (21:15)
[2022-04-19 08:00] VITALS: BP 100/61
[2022-04-19] MEDS: FLUoxetine HCL 20 MG CAPSULE PO SCH (09:00)
[2022-04-19] MEDS ORDERED: HydrOXYzine PAMOATE 25 MG CAPSULE PO PRN (12:45)
[2022-04-19 15:30] VITALS: BP 115/65
[2022-04-19] MEDS ORDERED: OLAN10TA74 PO (16:30)
[2022-04-19] MEDS ORDERED: FLUO20CA36 PO (16:30)
[2022-04-19 16:40] VITALS: BP 115/85
== END 2022-04-19 17:10 | disposition home or self-care (01) | DRG 753 ==
LOC: EMS 21:41 → 3EI 04-11 02:14
PROVIDERS: ADMIT Psychiatry & Neurology Child & Adolescent Psychiatry; ATTEND Psychiatry & Neurology Child & Adolescent Psychiatry
DX: F31.4 Bipolar disorder, current episode depressed, severe, without psychotic features (principal); F22 Delusional disorders; R45.851 Suicidal ideations; F41.9 Anxiety disorder, unspecified; F10.10 Alcohol abuse, uncomplicated; R03.0 Elevated blood-pressure reading, without diagnosis of hypertension; R79.89 Other specified abnormal findings of blood chemistry; F19.10 Other psychoactive substance abuse, uncomplicated; Z20.822 Contact with and (suspected) exposure to COVID-19; Z71.41 Alcohol abuse counseling and surveillance of alcoholic; Z86.59 Personal history of other mental and behavioral disorders; Z59.00 Homelessness unspecified
CPT/HCPCS: 80053; 81003; 85025; 87081; 99285; G0480